=== PATIENT | male | born 1980 | race Caucasian/White ===

== ENCOUNTER 2022-08-09 09:24 | Emergency (ER) | payer OTHER ==
[~2022-08-09] VITALS: Ht 177.8 cm; Wt 88.6 kg
[2022-08-09 09:41] VITALS: BP 116/66
[2022-08-09] MEDS ORDERED: PERTUSS(ACELL),DIPH,TET VAC/PF 0.5 ML SYRINGE IM. ONE (10:00)
[2022-08-09] MEDS ORDERED: KETOROLAC TROMETHAMINE 60 MG/2 ML VIAL IM ONE (10:00)
== END 2022-08-09 11:38 ==
LOC: EMS 09:26
DX: S83.92XA Sprain of unspecified site of left knee, initial encounter (principal); S70.312A Abrasion, left thigh, initial encounter; S90.512A Abrasion, left ankle, initial encounter; W19.XXXA Unspecified fall, initial encounter; Y93.89 Activity, other specified; Y92.89 Other specified places as the place of occurrence of the external cause; Y99.8 Other external cause status
CPT/HCPCS: 99284; 29505; 73562; 90715; 90471; 96372; J1885